=== PATIENT | male | born 2000 | race Asian ===

== ENCOUNTER 2018-03-27 09:40 | Day surgery (SDC) | payer OTHER ==
[2018-03-24 13:29] VITALS: BMI 22.2
[2018-03-27] MEDS ORDERED: Fentanyl 100 MCG/2 ML VIAL ONE ×2 (10:22→15:01)
[2018-03-27] MEDS ORDERED: Dexamethasone 4 mg/ml Vial ONE (10:22)
[2018-03-27] MEDS ORDERED: Midazolam HCl 2 mg/2 ml Vial ONE (10:22)
[2018-03-27] MEDS ORDERED: CEFAZOLIN 2 GM/50 ML BAG ONE (11:13)
[2018-03-27] MEDS ORDERED: Promethazine HCl 25 MG/ML VIAL IM PRN (11:18)
[2018-03-27] MEDS ORDERED: traMADol HCl 50 MG TAB PO PRN ×2 (11:18)
[2018-03-27] MEDS ORDERED: HYDROcodone/Acetaminophen 10/325 mg Tablet PO PRN ×2 (11:18)
[2018-03-27] MEDS ORDERED: Ondansetron PF 4 MG/2 ML Vial IVP PRN (11:18)
[2018-03-27] MEDS ORDERED: Ropivacaine 0.2% 550 ML 550 ML NERVE BLCK SCH (11:18)
[2018-03-27] MEDS ORDERED: Fentanyl 100 MCG/2 ML VIAL IV PRN (11:18)
[2018-03-27] MEDS ORDERED: Ketorolac Tromethamine 30 MG/ML VIAL IVP PRN (11:18)
[2018-03-27] MEDS ORDERED: Zolpidem Tartrate 5 MG TAB PO PRN (11:18)
[2018-03-27] MEDS ORDERED: Neomycin-Polymyxin 1 ML AMP ONE (11:52)
[2018-03-27] MEDS ORDERED: Bupivacaine 0.5% 10 ML VIAL ONE (15:31)
[2018-03-27] MEDS ORDERED: Ropivacaine 0.2% HCl/PF (40 MG/20 ML VIAL) ONE (15:32)
[2018-03-27] MEDS ORDERED: Bupivacaine HCl 0.5%/Epinephrine 1:200,000/PF 30 ml Vial ONE (15:32)
--- NOTE | 2018-03-27 15:43 | RAD ---
RIGHT ANKLE THREE VIEWS: HISTORY: ORIF right ankle. FINDINGS: Three spot fluoroscopic intraoperative images of the right ankle demonstrate internal fixation of the distal fibula and medial malleolus with screws through the medial malleolus and a plate and screws t hrough the distal fibula. The ankle mortise is maintained. POS: [facility]
[2018-03-27] MEDS ORDERED: Ketorolac Tromethamine 30 MG/ML VIAL ONE (17:15)
[2018-03-27] MEDS ORDERED: Dexamethasone 20 MG/5 ML VIAL ONE (17:15)
[2018-03-27] MEDS ORDERED: Ondansetron PF 4 MG/2 ML Vial ONE (17:15)
[2018-03-27] MEDS ORDERED: PROPOFOL 200 MG/20 ML VIAL ONE (17:15)
--- NOTE | 2018-03-28 11:17 | OP ---
DATE OF PROCEDURE: 03/27/2018 PREOPERATIVE DIAGNOSIS: Right bimalleolar ankle fracture. POSTOPERATIVE DIAGNOSIS: Right bimalleolar ankle fracture. PROCEDURE: Fluoroscopic guidance internal fixation of right bimalleolar ankle fracture and repair of syndesmosis, right ankle. ANESTHESIA: General. SURGEON: Vahid Villa M.D. COMPLICATIONS: None. CONDITION: Good. ESTIMATED BLOOD LOSS: Minimal. DRAINS: None. TOURNIQUET: Per anesthesia. TECHNIQUE: Consent was obtained. The patient was taken to the operating room and placed in supine p osition. After adequate general anesthesia had been achieved, the patient's right ankle was examined . The patient had gross instability. The right ankle with posterolateral displacement translation. The right ankle was in position and right lower extremities in position, prepped and draped in the u sual sterile fashion. Tourniquet placed on right upper thigh. Leg was elevated, exsanguinated, and tourniquet inflated prior to incision. Standard direct lateral approach to the distal fibula was per formed. It was taken down to the subcutaneous tissues posing the fracture site. The fracture was th en reduced anatomically and distal locking fibular plate was placed. This achieved anatomic reductio n. Medial malleolus was exposed through an oblique incision and was taken down to the subcutaneous t issues exposing the fracture site. A reduction was achieved and anatomically with compression cannul ated screws 4.0. The patient still had widening of the mortise with evidence of syndesmotic disrupti on. This was addressed with a TightRope device. This was drilled through the plate from the lateral fibula and the distal button. The button was placed medially under direct vision. The fibula was t hen held in the corrected anatomic position as the device was tightened. A stable anatomic restorati on of anatomy was noted multiple planes, syndesmosis remained stable. The wounds were then irr igated copiously. Deep tissues and subcutaneous closed with 2-0 Vicryl, the skin with 3-[address] erile bulky dressing was applied and the patient was taken to recovery with posterior and stirrup spl int. The patient was taken to recovery in stable condition. Prognosis is good.
== END 2018-03-27 17:12 | disposition home or self-care (01) ==
LOC: SDC 09:40
PROVIDERS: ATTEND Orthopaedic Surgery
PROC: 0SSF04Z Reposition Right Ankle Joint with Internal Fixation Device, Open Approach (ICD-10-PCS; principal; 2018-03-27)
PROC: 0QSJ04Z Reposition Right Fibula with Internal Fixation Device, Open Approach (ICD-10-PCS; principal; 2018-03-27)
PROC: 0QSG04Z Reposition Right Tibia with Internal Fixation Device, Open Approach (ICD-10-PCS; principal; 2018-03-27)
DX: S82.841A Displaced bimalleolar fracture of right lower leg, initial encounter for closed fracture (principal); S93.431A Sprain of tibiofibular ligament of right ankle, initial encounter; Z79.899 Other long term (current) drug therapy; X50.0XXA Overexertion from strenuous movement or load, initial encounter
CPT/HCPCS: 76001; 96374; A4306; C1713; C1769; J0670; J1100; J1885; J2250; J2405; J2704; J2795; J3010; J3490